=== PATIENT | male | born 1975 | race Hispanic/Latino ===

== ENCOUNTER 2017-08-08 20:25 | Emergency (ER) | payer OTHER ==
[2017-08-08 20:47] VITALS: O2SAT 98
[2017-08-08] MEDS ORDERED: Sodium Chloride 0.9% 1,000 ML IV ONE (21:17)
[2017-08-08] MEDS ORDERED: Iohexol 240 (50 ml) PO STA (21:17)
--- NOTE | 2017-08-08 21:17 | C.PDOC ---
Time Seen by Provider: 08/08/17 20:50 Chief Complaint (Nursing): Abdominal Pain Past Medical History Vital Signs: Last Vital Signs Temp 98.7 F 08/08/17 20:43 Pulse 88 08/08/17 20:43 Resp 20 08/08/17 20:43 BP 137/83 08/08/17 20:43 Pulse Ox 98 08/08/17 20:43 - Medical History PMH: Back Problems Denies: Chronic Kidney Disease Surgical History: Appendectomy, Back Surgery - [facility] ING HERNIA REP-GRAFT NOS (09/08/14) Family History: States: Unknown Family Hx - Social History Hx Tobacco Use: No Hx Alcohol Use: No Hx Substance Use: No - Immunization History Hx Tetanus Toxoid Vaccination: Yes Hx Influenza Vaccination: No Hx Pneumococcal Vaccination: No ED Course And Treatment O2 Sat by Pulse Oximetry: 98 Progress - Data Reviewed Data Reviewed: Lab, Diagnostic imaging, Old records Disposition - Disposition
--- NOTE | 2017-08-08 21:23 | C.PDOC ---
"History Of Present Illness 42-year-old male, PMHx includes inguinal hernia repair 09/2014, presents to the emergency department with complaints of worsening abdominal pain and hernia over the past two weeks. Associated symptoms include an increase in testicular size. Denies fever, nausea/vomiting, back pain, dysuria, hematuria, or any other associated symptoms. No other complaints. Time Seen by Provider: 08/08/17 20:50 Chief Complaint (Nursing): Abdominal Pain History Per: Patient History/Exam Limitations: no limitations Onset/Duration Of Symptoms: Days Past Medical History Reviewed: Historical Data, Nursing Documentation, Vital Signs Vital Signs: Last Vital Signs Temp 98.7 F 08/08/17 20:43 Pulse 88 08/08/17 20:43 Resp 20 08/08/17 20:43 BP 137/83 08/08/17 20:43 Pulse Ox 98 08/08/17 22:49 - Medical History PMH: Back Problems Surgical History: Appendectomy, Back Surgery - [facility] ING HERNIA REP-GRAFT NOS (09/08/14) Family History: States: No Known Family Hx - Social History Hx Tobacco Use: No Hx Alcohol Use: No Hx Substance Use: No - Immunization History Hx Tetanus Toxoid Vaccination: Yes Hx Influenza Vaccination: No Hx Pneumococcal Vaccination: No Review Of Systems Except As Marked, All Systems Reviewed And Found Negative. Constitutional: Negative for: Fever, Chills Cardiovascular: Negative for: Chest Pain Respiratory: Negative for: Shortness of Breath Gastrointestinal: Positive for: Abdominal Pain. Negative for: Nausea, Vomiting , Hematochezia, Hematemesis Genitourinary: Negative for: Dysuria, Frequency, Incontinence, Hematuria, Penile Discharge, Scrotal Pain Musculoskeletal: Negative for: Back Pain Skin: Negative for: Rash Neurological: Negative for: Weakness, Numbness, Headache, Dizziness Physical Exam - Physical Exam Appears: Non-toxic, No Acute Distress Skin: Normal Color, Warm, Dry, No Rash Head: Normacephalic Eye(s): bilateral: PERRL Nose: Normal Oral Mucosa: Moist Lips: Normal Appearing Neck: Normal ROM Respiratory: Normal Breath Sounds, No Accessory Muscle Use Gastrointestinal/Abdominal: Tenderness (Diffuse), Distention, No Guarding, No Rebound, Other (No edema, no erythema, no focal hernia.) Male Genital: No Inguinal Tenderness (No edema, no erythema.), Scrotal Swelling (2x normal range. ), No Circumcised, Other ([facility] RN Dorie) Extremity: Normal ROM, No Deformity, No Swelling Neurological/Psych: Oriented x3, Normal Speech ED Course And Treatment - Laboratory Results Result Diagrams: 08/08/17 21:30 08/08/17 21:30 O2 Sat by Pulse Oximetry: 98 (RA) Pulse Ox Interpretation: Normal - CT Scan/US CT Abdomen & Pelvis Other Rad Studies (CT/US): Read By Radiologist, Radiology Report Reviewed CT/US Interpretation: EXAM: CT Abdomen and Pelvis With Intravenous Contrast. CLINICAL HISTORY: 42 years old, male; Pain; Abdominal pain; Periumbilical; Additional info: Abd pain RO incarc hernia. TECHNIQUE: Axial computed tomography images of the abdomen and pelvis with intravenous contrast. All CT. scans at this facility use one or more dose reduction techniques, viz.: automated exposure control;. ma/kV adjustment per patient size (including targeted exams where dose is matched to indication; i.e. head); or iterative reconstruction technique. CONTRAST: 100 mL of [id number] administered intravenously. COMPARISON: No relevant prior studies available. FINDINGS: Lung bases: Unremarkable. No mass. No consolidation. ABDOMEN: Liver: Hepatic steatosis. Hepatomegaly. Gallbladder and bile ducts: Unremarkable. No calcified stones. No ductal dilation. Pancreas: Unremarkable. No mass. No ductal dilation. Spleen: Unremarkable. No splenomegaly. Adrenals: Unremarkable. No mass. Kidneys and ureters: Unremarkable. No solid mass. No hydronephrosis. Stomach and bowel: Unremarkable. No obstruction. Appendix: No findings to suggest acute appendicitis. PELVIS: Bladder: Unremarkable. No mass. Reproductive: Unremarkable as visualized. EDY MARROQUIN | Preliminary Radiology Report. CONFIDENTIALITY STATEMENT. This report is intended only for the use of the referring physician , and only in accordance with law, If you received this in error, call [phone]. Page 2 of 2. ABDOMEN and PELVIS: Intraperitoneal space: Unremarkable. No free air. No significant fluid collection. Bones/joints: Multilevel thoracolumbar spinal fixation. Lumbar spinal disc disease, most severe at. L5- S1. No acute fracture. No dislocation. Soft tissues: Small fat-containing bilateral inguinal hernias. Small amount of fluid density in left. inguinal hernia sac. Vasculature: Unremarkable. No abdominal aortic aneurysm. Lymph nodes: Unremarkable. No enlarged lymph nodes. IMPRESSION: 1. No evidence of anterior abdominal wall hernia. 2. No evidence of bowel obstruction. 3. Remainder of findings as above. US Testicular Other Rad Studies (CT/US): Read By Radiologist, Radiology Report Reviewed CT/US Interpretation: EXAM: US Scrotum. CLINICAL HISTORY: 42 years old, male ; Pain; Scrotum pain; Additional info: L scrotal pain, swelling. TECHNIQUE: Real-time ultrasound of the scrotum with color Doppler and image documentation. COMPARISON: No relevant prior studies available. FINDINGS: Right testicle: Right testicle measures 5.7 x 3 x 3.8 CM. No torsion. Left testicle: Left testicle measures 5.7 x 3.4 x 3.6 CM. No torsion. Epididymides: Left epididymis not visualized. Scrotum: Large left hydrocele. IMPRESSION: 1. Large left hydrocele. 2. No intratesticular lesions. 3. No torsion. Progress - Re-Evaluation Re-evaluation Note: 08/08/17 22:52 appears comfortable nad. no s/s acute abd vss. CT AND US REPORT REVIEWED. PT ADVISED NEED FOR GI, OUTPT FU. PT ON CHRONIC PAIN MEDS. - Data Reviewed Data Reviewed: Lab, Diagnostic imaging, Old records Medical Decision Making Medical Decision Making: Plan: * CT Abd/Pel * Bloodwork * US Testicular * UA * Reassess and Disposition Disposition Counseled Patient/Family Regarding: Studies Performed, Diagnosis, Need For Followup - Disposition Referrals: [facility] [Outside] [facility] [Outside] Wayne Colvin MD [Staff Provider] - Drake Camejo MD [Staff Provider] - Disposition: HOME/ ROUTINE Disposition Time: 22:56 Condition: GOOD Instructions: Hydrocele/Varicocele (DC), Acute Abdomen (Belly Pain), Adult (DC) Forms: [facility] ([place]), Work Excuse - Clinical Impression Clinical Impression: Abdominal pain, Hydrocele - Scribe Statement The provider has reviewed the documentation as recorded by the Scribe (Marcus Fitch) All medical record entries made by the Scribe were at my direction and personally dictated by me. I have reviewed the chart and agree that the record accurately reflects my personal performance of the history, physical exam, medical decision making, and the department course for this patient. I have also personally directed, reviewed, and agree with the discharge instructions and disposition."
[2017-08-08] MEDS ORDERED: Iohexol 240 (50 ml) ONE (21:39)
[2017-08-08] MEDS ORDERED: Sodium Chloride 0.9% 1,000 ML ONE (21:39)
[2017-08-08 21:40] LABS: SQUAMOUS EPITHIAL < 1 /hpf (0-5); URINE BILIRUBIN NEGATIVE (NEGATIVE); URINE BLOOD NEGATIVE (NEGATIVE); URINE CLARITY Clear (Clear); URINE COLOR Yellow (YELLOW); URINE GLUCOSE (UA) NORMAL (Normal); URINE LEUKOCYTE ESTERASE NEG Leu/uL (Negative); URINE PROTEIN NEGATIVE (NEGATIVE)
[2017-08-08 21:41] LABS: BASO # 0.1 K/uL (0.0-0.2); BASO % 0.6 % (0.0-2.0); EOS # 0.4 K/uL (0.0-0.7); EOS % 3.1 % (0.0-4.0); HEMOGLOBIN 14.6 g/dL (12.0-18.0); LYMPH # 3.8 K/uL (1.0-4.3); LYMPH % 29.3 % (20.0-40.0); MEAN CELL VOLUME 89.6 fL (80.0-94.0); MEAN CORPUSCULAR HEMOGLOBIN 31.6 pg (27.0-31.0); MEAN CORPUSCULAR HGB CONC 35.3 g/dL (33.0-37.0); MEAN PLATELET VOLUME 8.2 fL (7.2-11.7); MONO # 1.2 K/uL (0.0-0.8); MONO % 9.1 % (0.0-10.0); NEUT # 7.5 K/uL (1.8-7.0); NEUT % 57.9 % (50.0-75.0); NRBC % 0.1 % (0.0-2.0); RBC 4.61 Mil/uL (4.40-5.90); RED CELL DISTRIBUTION WIDTH 13.9 % (11.5-14.5)
[2017-08-08 21:43] LABS: VENOUS BLOOD GAS BASE EXCESS 5.6 mmol/L (0.0-2.0); VENOUS BLOOD GAS PCO2 45 mmHg (40-60); VENOUS BLOOD GAS PO2 34 mm/Hg (30-55); VENOUS BLOOD PH 7.44 (7.32-7.43)
[2017-08-08] MEDS ORDERED: Iohexol 350mg/ml 100 ML ONE (21:45)
[2017-08-08 21:46] LABS: ALB/GLOB RATIO 1.2 (1.0-2.1); ALBUMIN 4.4 g/dL (3.5-5.0); ALT/SGPT 98 U/L (21-72); AST/SGOT 52 U/L (17-59); BLOOD UREA NITROGEN 16 mg/dL (9-20); CALCIUM 8.6 mg/dl (8.6-10.4); GFR AFRICAN-AMERICAN > 60; GFR NON-AFRICAN AMERICAN > 60; LIPASE 56 U/L (23-300)
[2017-08-08 23:02] VITALS: BP 126/86; PULSE 78; RESP 18; TEMP 98
--- NOTE | 2017-08-09 11:44 | CT ---
PROCEDURE: CT scan abdomen pelvis dated 08/08/2017 HISTORY: Abdominal pain. Rule out incarcerated hernia. COMPARISON: Comparison made with prior CT scan abdomen pelvis 09/08/2014 TECHNIQUE: Contiguous helical/transaxial images of the abdomen and pelvis performed of following oral and intravenous injection of approximately 100 cc Omnipaque 350 contrast material. Additional 2 dimensional sagittal and coronal reformats provided. Radiation dose: Total exam DLP = This CT exam was performed using one or more of the following dose reduction techniques: Automated exposure control, adjustment of the mA and/or kV according to patient size, and/or use of iterative reconstruction technique. FINDINGS: LOWER THORAX: Unremarkable. Lung bases are clear. No infiltrate effusion or basilar pneumothorax. Tiny hiatal hernia. Heart size within range of normal. No significant pericardial effusion. LIVER: Liver is enlarged measuring approximately at 23.5 cm in CC dimension. Moderate fatty hepatic infiltration. . No obvious hepatic masses or collections. Portal and splenic veins are opacified GALLBLADDER AND BILE DUCTS: The gallbladder is physiologically distended. No evidence of intraluminal gallbladder calculi. . PANCREAS: The pancreas appears slightly atrophic and fatty replaced. Lymph SPLEEN: Spleen exhibits normal size and attenuation pattern without mass collection or calcification ADRENALS: No adrenal lesions. KIDNEYS AND URETERS: Kidneys demonstrate symmetric nephrograms. No evidence of nephrolithiasis or hydronephrosis. BLADDER: The urinary bladder is incompletely distended which may account for slight thick-walled appearance. Muscular hypertrophy may contribute. . Prostatic calcifications are present. REPRODUCTIVE: Prostate measures approximately 4.0 cm in transverse dimension. Prostatic calcifications are present. APPENDIX: Appendix is not seen with complete certainty however no inflammatory changes identified in the right lower quadrant of the abdomen. BOWEL: Evaluation of the bowel is limited due to incomplete opacification. Stomach is incompletely distended with oral contrast material and air. Visualized loops of small bowel exhibit normal contour and caliber. No evidence of acute mechanical small bowel obstruction. Stool and air seen throughout the large bowel. PERITONEUM: Unremarkable. No fluid collection. No free air. Small bilateral fat containing inguinal hernias are present, left-sided which contains a small amount of fluid. . There is also small fat containing umbilical hernia. LYMPH NODES: Unremarkable. No enlarged lymph nodes. VASCULATURE: Unremarkable. No aortic aneurysm. BONES: Multilevel posterior fixation accomplished by in situ bilateral Garcia rods attached to pedicles of the T11, T12 L2 and L3 segments. . 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 OTHER FINDINGS: None IMPRESSION: Marked on supplemental megaly and fatty infiltration. Small fat containing the umbilical hernia. Small bilateral fat containing inguinal hernias left-sided which contains a small amount of fluid. Multilevel on posterior fixation lower thoracic and upper lumbar region.
--- NOTE | 2017-08-09 16:13 | US ---
HISTORY: Left scrotal pain and swelling TECHNIQUE: Realtime sonography through the scrotum with color and doppler flow. COMPARISON: None Available. FINDINGS: RIGHT TESTICLE: Measures right testicle measures approximately 5.7 x 3.0 x 3.8 cm cm. Normal echotexture and flow. There is a small right-sided hydrocele RIGHT EPIDIDYMIS: Epididymal head measures 1.0 x 1.0 x 0.9 cm. Grossly unremarkable appearance with normal flow. LEFT TESTICLE: Left testicle measures approximately 5.7 x 3.4 x 3.6 cm. Normal echotexture and flow. There is a small left-sided hydrocele LEFT EPIDIDYMIS: Left epididymis not visualized on this exam. HYDROCELE: Small right hydrocele. Large left hydrocele at Small bilateral hydroceles VARICOCELE: None. OTHER FINDINGS: None. IMPRESSION: Both testicles exhibit arterial flow. . Very large left hydrocele with nonvisualization left epididymis. Small right-sided hydrocele. Preliminary report provided by overnight radiology service
== END 2017-08-08 23:02 | disposition home or self-care (01) ==
LOC: C.ER 20:25
DX: N43.3 Hydrocele, unspecified (principal); R10.9 Unspecified abdominal pain
CPT/HCPCS: 74177; 76870; 80053; 81001; 82803; 83690; 85025; 99284; J7040; Q9966; Q9967